=== PATIENT | male | born 1985 | race Hispanic/Latino ===

== ENCOUNTER 2020-06-19 20:04 | Emergency (ER) | payer OTHER ==
[2020-06-19] MEDS ORDERED: LORazepam 2 MG/ML VIAL IM PRN (20:24)
[2020-06-19] MEDS ORDERED: HALOPERIDOL LACTATE 5 MG/1 ML INJ IM PRN (20:24)
--- NOTE | 2020-06-19 20:24 | Emergency Department Report ---
ED General Adult HPI - General Chief complaint: Psych Stated complaint: SUICIDAL/MH PUI?: No Time Seen by Provider: 06/19/20 20:13 Source: patient, EMS, RN notes reviewed Mode of arrival: Ambulatory Limitations: No Limitations - History of Present Illness Initial comments: The patient was evaluated in the emergency department for symptoms described in the history of present illness. He/she was evaluated in the context of the global COVID-19 pandemic, which necessitated consideration that the patient might be at risk for infection with the virus that causes COVID-19. Institutional protocols and algorithms that pertain to the evaluation of patients at risk for COVID-19 are in a state of rapid change based on information released by regulatory bodies including the CDC and federal and state organizations. These policies and algorithms were followed during the patient's care in the emergency department. Please note that these policies, procedures and recommendations changed on a rapid basis. Patient is a 34-year-old gentleman. This patient is not known to myself previously. The patient is brought to the hospital by emergency medical services. Apparently, the patient called local animal control, with a request to care for his pet dog/animal. The patient states that he is suicidal with a plan to stab himself in the chest. He denies intention to overdose. He has chronic pain for over a decade, in his lower back, and multiple joints. He denies hallucinations. He denies homicidality. He recently moved here from [place]. He states that he lives in a truck with the aforementioned animal. He tells me the animal control took the animal and is currently caring for it. He states he does not take any prescription medications. He is not accompanied by friends or family at this time for additional information or collateral information. He denies fever, cough, abdominal pain, urinary symptoms. He states he feels constantly suicidal. He does not describe exacerbating, relieving factors, or aggravating factors. -: year(s) Consistency: constant Improves with: none Worsens with: none Associated Symptoms: denies other symptoms - Related Data Allergies Allergy/AdvReac Type Severity Reaction Status Date / Time egg Allergy Unknown Verified 06/19/20 20:10 lactose Allergy Unknown Verified 06/19/20 20:11 ED Review of Systems ROS: Stated complaint: SUICIDAL/MH Other details as noted in HPI Comment: All other systems reviewed and negative Musculoskeletal: arthralgia Neurological: headache (Headache present for a decade. It is not sudden or thunderclap in nature, not maximal in intensity.) Psychiatric: suicidal thoughts ED Past Medical Hx - Past Medical History Previous Medical History?: Yes Hx Psychiatric Treatment: Yes (PTSD, Dissociative depression disorder) - Surgical History Past Surgical History?: No - Social History Smoking Status: Current Every Day Smoker ED Physical Exam - General Limitations: No Limitations General appearance: alert, in no apparent distress - Head Head exam: Present: atraumatic, normocephalic - Eye Eye exam: Present: normal appearance, EOMI. Absent: nystagmus - ENT ENT exam: Present: normal exam, normal orophraynx, mucous membranes moist, normal external ear exam - Neck Neck exam: Present: normal inspection, full ROM. Absent: tenderness, meningismus - Respiratory Respiratory exam: Present: normal lung sounds bilaterally. Absent: respiratory distress, wheezes, rales, rhonchi, stridor, decreased breath sounds - Cardiovascular Cardiovascular Exam: Present: regular rate, normal rhythm, normal heart sounds. Absent: bradycardia, tachycardia, irregular rhythm, systolic murmur, diastolic murmur, rubs, gallop - GI/Abdominal GI/Abdominal exam: Present: soft. Absent: distended, tenderness, guarding, rebound, rigid, pulsatile mass - Rectal Rectal exam: Present: deferred - Extremities Exam Extremities exam: Present: normal inspection, full ROM, other (2+ pulses noted in the bilateral upper and lower extremities. There is no palpable cord. negative Homans sign. Muscular compartments are soft. The pelvis is stable.). Absent: pedal edema, calf tenderness - Back Exam Back exam: Present: normal inspection, full ROM. Absent: tenderness, CVA tenderness (R), CVA tenderness (L), paraspinal tenderness, vertebral tenderness - Neurological Exam Neurological exam: Present: alert, oriented X3, normal gait, other (No facial droop. Tongue midline. Extraocular movements intact bilaterally. Facial sensation intact to light touch in V1, V2, V3 distribution bilaterally. 5 and a 5 strength in 4 extremities. Sensation intact to light touch in 4 extremities.). Absent: motor sensory deficit - Psychiatric Psychiatric exam: Present: flat affect, suicidal ideation - Skin Skin exam: Present: warm, dry, intact, normal color. Absent: rash ED Course Vital Signs 06/19/20 20:35 Temperature 98.9 F Pulse Rate 97 H Respiratory 18 Rate Blood Pressure 142/83 [Left] O2 Sat by Pulse 98 Oximetry ED Medical Decision Making - Lab Data Result diagrams: 06/19/20 20:31 06/19/20 20:31 Vital Signs 06/19/20 20:35 Temperature 98.9 F Pulse Rate 97 H Respiratory 18 Rate Blood Pressure 142/83 [Left] O2 Sat by Pulse 98 Oximetry Lab Results 06/19/20 06/19/20 06/19/20 Range/Units 20:31 20:31 20:31 Hgb (11.8-15.2) gm/dl Hct (35.5-45.6) % Plt Count (140-440) K/mm3 Sodium 136 L (137-145) mmol/L Potassium 3.9 (3.6-5.0) mmol/L Chloride 99.5 (98-107) mmol/L Carbon Dioxide 24 (22-30) mmol/L Anion Gap 16 mmol/L BUN 11 (9-20) mg/dL Creatinine 0.8 (0.8-1.3) mg/dL Estimated GFR > 60 ml/min BUN/Creatinine Ratio 14 % Glucose 126 H (75-100) mg/dL Calcium 9.4 (8.4-10.2) mg/dL Magnesium (1.7-2.3) mg/dL Total Creatine Kinase (55-170) units/L Salicylates < 0.3 L (2.8-20.0) mg/dL Acetaminophen 5.0 L (10.0-30.0) ug/mL Plasma/Serum Alcohol (0-0.07) % 06/19/20 06/19/20 06/19/20 Range/Units 20:31 20:31 20:31 Hgb 15.4 H (11.8-15.2) gm/dl Hct 45.2 (35.5-45.6) % Plt Count 286 (140-440) K/mm3 Sodium (137-145) mmol/L Potassium (3.6-5.0) mmol/L Chloride (98-107) mmol/L Carbon Dioxide (22-30) mmol/L Anion Gap mmol/L BUN (9-20) mg/dL Creatinine (0.8-1.3) mg/dL Estimated GFR ml/min BUN/Creatinine Ratio % Glucose (75-100) mg/dL Calcium (8.4-10.2) mg/dL Magnesium 2.00 (1.7-2.3) mg/dL Total Creatine Kinase 66 (55-170) units/L Salicylates (2.8-20.0) mg/dL Acetaminophen (10.0-30.0) ug/mL Plasma/Serum Alcohol < 0.01 (0-0.07) % - Medical Decision Making Differential diagnosis, including but not limited to: Suicidality, depression, dysthymia, medical clearance Assessment and plan: 34-year-old gentleman, who was afebrile, with reassuring vital signs, with a benign and unremarkable physical examination, who endorses suicidality with plan to stab himself. Laboratory studies are reviewed and are unremarkable. He denies urinary symptoms and Covid symptomatology. Patient placed on a 1013 hold. Psychiatric consultation is requested. At this point in time, patient does not appear to have an immediate medical contraindication to psychiatric evaluation, consultation, and placement. 1013 form filled out by myself. Transfer form filled out by myself. Patient does meet criteria for involuntary hold/1013 at this time. Critical care attestation.: If time is entered above; I have spent that time in minutes in the direct care of this critically ill patient, excluding procedure time. ED Disposition Clinical Impression: Medical clearance for psychiatric admission, General medical examination Disposition: [id number] PSY HOSP/PSY UNIT Is pt being admited?: No Does the pt Need Aspirin: No Condition: Good
[2020-06-19 20:52] LABS: Hematocrit 45.2 % (35.5-45.6); Hemoglobin 15.4 gm/dl (11.8-15.2)
[2020-06-19 21:19] LABS: BUN/Creatinine Ratio 14; Blood Urea Nitrogen 11 mg/dL (9-20); Calcium 9.4 mg/dL (8.4-10.2); Hemolysis Index 10
[2020-06-19] MEDS ORDERED: IBUPROFEN 400 MG TAB PO PRN (21:39)
[2020-06-19] MEDS ORDERED: ACETAMINOPHEN 325 MG TAB PO PRN (21:39)
[2020-06-19 21:59] LABS: Bilirubin,Urine NEG (Negative); Blood,Urine NEG (Negative); Color,Urine Yellow (Yellow); Mucus,Urine FEW /HPF; Protein,Urine <15 mg/dL mg/dL (Negative); RBC,Urine < 1.0 /HPF (0.0-6.0)
[2020-06-19 22:06] LABS: Amphetamine Screen,Urine Negative; Benzodiazepines Screen,Urine Negative; Cannabinoid Screen,Urine Negative; Cocaine Screen,Urine Negative; Methadone Screen,Urine Negative; Opiate Screen,Urine Negative
--- NOTE | 2020-06-20 08:46 | Consultation ---
History of Present Illness - Reason for Consult Consult date: 06/20/20 Reason for consult: MHE Requesting physician: ASIM KEEN - History of Present Psychiatric Illness Per ED Provider: Patient is a 34-year-old gentleman. This patient is not known to myself previously. The patient is brought to the hospital by emergency medical services. Apparently, the patient called local animal control, with a request to care for his pet dog/animal. The patient states that he is suicidal with a plan to stab himself in the chest. He denies intention to overdose. He has chronic pain for over a decade, in his lower back, and multiple joints. He denies hallucinations. He denies homicidality. He recently moved here from [place]. He states that he lives in a truck with the aforementioned animal. He tells me the animal control took the animal and is currently caring for it. He states he does not take any prescription medications. He is not accompanied by friends or family at this time for additional information or collateral information. He denies fever, cough, abdominal pain, urinary symptoms. He states he feels constantly suicidal. He does not describe exacerbating, relieving factors, or aggravating factors. Per MHA: Pt is a 34 yo male presenting to ED for MHE, as pt reported SI/HI; paranoia. During ax, pt presented as with cooperative behaviors, depressed mood and flat affect. Pt reports onset of SI, HI 06/18/20. Pt identified trigger of worsening depression. Pt reports daily SI and stated, [facility] and told them to come get my [facility] and I wanted to kill myself". Pt reports hx of attempts. -pt attempted to cut his throat. Pt reports HI "I will kill anyone that harrases me". Pt denies A/V H. Pt reports hx of PTSD, Dissoacative Dx". Pt denies current drug. Pt reports use of cocaine, acid, mushroom in Jul--September 2019. Pt evasive about duration, onset, lenght of use, route of adminstration and last use. Pt reports homelessness. Pt states he lives in the cab of his semitruck. Pt denies legal problems. 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 PSYCH HPI Patient is a 34-year-old , who used to live in a truck now homeless, was unemployed but now unemployed, and also receive SSI income that goes to his ex- and kids, with past psychiatric history of PTSD, depression, and dissociative personality disorder and no significant past medical history besides fibromyalgia who presented to the ED with chief complaint of having suicidal thoughts with plan to fall unto a knife. Patient reported was in his truck the other day,, felt hopeless, felt helpless, and new life was not working for him anymore, was thinking about not being able to have access to his kids, which was not looking promising either, and everyone has been treating him like a piece of shit, has lost his mom, does not have any relationship with siblings and currently does not know the current location of his dad. Patient states this feels very depressed at the moment, and is having suicidal thoughts still feels like killing himself by jumping onto a knife. Patient endorses good appetite and sleep. Denies any auditory or visual destinations. PAST PSYCHIATRIC HISTORY Diagnoses: PTSD, depression and dissociative personality disorder Suicide attempts or Self-harm behavior: Yes multiple times Prior psychiatric hospitalizations: Yes Substance Abuse history: Cocaine and pills Previous psychiatric medications tried: Noncompliant unknown Outpatient treatment: Noncompliant PAST MEDICAL HISTORY: None reported Family Psychiatric History: None reported or documented SOCIAL HISTORY Marital Status: Living Arrangements: Used to live in a truck Employment Status: Currently unemployed Access to guns/weapons: Yes knives Education: College dropout History of Abuse: None reported Legal History: Yes REVIEW OF SYSTEMS Constitutional: Negative for weight loss ENT: Negative for stridor Respiratory: Negative for cough or hemoptysis All other systems reviewed and are negative MENTAL STATUS EXAMINATION General Appearance and Behavior: Age appropriate, good hygiene, wearing appropriate clothes,, good eye contact Cooperation: Participating/engaged, but Guarded Psychomotor Behavior: Psychomotor normal Mood: depressed Affect and affective range: irritable, labile Thought Process: illogical Thought Content: hopelessness, helplessness Speech: Normal rate, volume and rythm Intellectual Functioning: Average Suicidal Ideation: SI Homicidal Ideation: Denies HI Impulse Control: Impaired Insight and Judgment: Limited insight and judgment Memory: Normal Attention: Normal Orientation: Alert, Diagnoses: Assessment and Plan - Psychiatric problem (1) MDD (major depressive disorder) Current Visit: Yes Status: Acute Treatment Plan MEDICATIONS: Risks, benefits and alternatives of medications discussed with the patient, questions answered and consent obtained from patient. PSYCHOTHERAPY: Supportive psychotherapy provided MEDICAL: Per primary team DELIRIUM PRECAUTIONS: Please re-orient patient frequently, keep lights on during the day, and minimize benzodiazepines and opiates as these medications could worsen patient's confusion. STNA: DISPOSITION: Do Recommend acute inpatient psychiatric hospitalization at this time LEGAL STATUS: 1013 FOLLOW-UP: Will follow Thank you for the consult. Please contact with any questions and/or concerns. Medications and Allergies Allergies Allergy/AdvReac Type Severity Reaction Status Date / Time egg Allergy Unknown Verified 06/19/20 20:10 lactose Allergy Unknown Verified 06/19/20 20:11 Active Meds: Active Medications Acetaminophen (Tylenol) 650 mg PO Q6HR PRN PRN Reason: PAIN Last Admin: 06/20/20 00:00 Dose: 650 mg Documented by: Haloperidol Lactate (Haldol) 5 mg IM Q6HR PRN PRN Reason: Agitation Ibuprofen (Ibuprofen) 400 mg PO Q6HR PRN PRN Reason: Pain , Severe (7-10) Lorazepam (Ativan) 2 mg IM Q4HR PRN PRN Reason: Agitation Mental Status Exam - Vital signs Last Vital Signs Temp 97.8 F 06/20/20 08:39 Pulse 67 06/20/20 08:39 Resp 20 06/20/20 08:39 BP 119/81 06/20/20 08:39 Pulse Ox 96 06/20/20 08:39 Results Result Diagrams: 06/19/20 20:31 06/19/20 20:31 Abnormal lab results 06/19/20 06/19/20 06/19/20 Range/Units 20:31 20:31 20:31 Hgb (11.8-15.2) gm/dl Sodium 136 L (137-145) mmol/L Glucose 126 H (75-100) mg/dL Salicylates < 0.3 L (2.8-20.0) mg/dL Acetaminophen 5.0 L (10.0-30.0) ug/mL 06/19/20 Range/Units 20:31 Hgb 15.4 H (11.8-15.2) gm/dl Sodium (137-145) mmol/L Glucose (75-100) mg/dL Salicylates (2.8-20.0) mg/dL Acetaminophen (10.0-30.0) ug/mL All other labs normal. Assessment and Plan - Psychiatric problem (1) MDD (major depressive disorder) Current Visit: Yes Status: Acute
[2020-06-20] MEDS: SERTRALINE 50 MG TAB PO SCH (11:03)
[2020-06-20 13:40] LABS: Basophils % (Auto) 0.8 % (0.0-1.8); Eosinophils # (Auto) 0.2 K/mm3 (0.0-0.4); Hematocrit 41.6 % (35.5-45.6); Hemoglobin 14.4 gm/dl (11.8-15.2); Lymphocytes # (Auto) 1.3 K/mm3 (1.2-5.4); Lymphocytes % (Auto) 23.5 % (13.4-35.0); Mean Corpuscular HGB Conc 35 % (32-34); Mean Corpuscular Volume 89 fl (84-94); Monocytes # (Auto) 0.4 K/mm3 (0.0-0.8); Monocytes % (Auto) 8.2 % (0.0-7.3); Platelet Count 251 K/mm3 (140-440); Red Blood Count 4.68 M/mm3 (3.65-5.03); Red Cell Distribution Width 13.5 % (13.2-15.2)
[2020-06-21 07:56] VITALS: BP 109/73
[2020-06-21] MEDS: SERTRALINE 50 MG TAB PO SCH (09:49)
== END 2020-06-21 09:45 ==
LOC: ED 20:04 → EEVIPCON 20:04 → ED 06-21 09:45
DX: R45.851 Suicidal ideations (principal); F43.10 Post-traumatic stress disorder, unspecified; F17.200 Nicotine dependence, unspecified, uncomplicated; Z04.6 Encounter for general psychiatric examination, requested by authority; Z00.00 Encounter for general adult medical examination without abnormal findings; Z91.012 Allergy to eggs; Z88.8 Allergy status to other drugs, medicaments and biological substances
CPT/HCPCS: 36415; 80048; 80307; 80320; 81001; 82550; 83735; 85014; 85018; 85049; G0480